=== PATIENT | female | born 1980 | race Caucasian/White ===

== ENCOUNTER 2016-12-15 21:15 | Emergency (ER) | payer OTHER ==
[~2016-12-15 21:15] MED LIST: LOSA25TA5 PO
== END 2016-12-16 01:47 | disposition left against medical advice (07) ==
LOC: E/R 21:15
DX: Z53.21 Procedure and treatment not carried out due to patient leaving prior to being seen by health care provider (principal)

== ENCOUNTER 2017-07-25 20:46 | Emergency (ER) | payer OTHER ==
[~2017-07-25] VITALS: Ht 162.6 cm; Wt 101.0 kg
[2017-07-25 20:52] VITALS: Ht 162.6 cm; Wt 101.0 kg
[2017-07-25] MEDS ORDERED: SOD CHLORIDE 0.9% 1,000 ML IV STA (23:54)
--- NOTE | 2017-07-26 00:32 | RADRPT ---
PROCEDURE: CT Brain without contrast. CLINICAL INDICATION: Dizziness. TECHNIQUE: Serial axial computed tomographic images of the brain was performed on a CT scanner fro m the skull base through the vertex without contrast. Sagittal and coronal reconstruction images wer e produced. Exam CTDlvol = 45 mGy and DLP = 720 mGy-cm. One of the following 3 dose reduction tech niques were used: Automated exposure control; adjustment of the mA and/or kV according to patient si ze; or use of iterative reconstruction technique. COMPARISON: None available FINDINGS: The ventricles and sulci are normal in size and configuration. There is no midline shift. There ar e no focal parenchymal abnormalities. There is no acute stroke. No acute intracranial hemorrhage o r abnormal extra-axial fluid collection. No fracture identified. Visualized paranasal sinuses are clear. IMPRESSION: 1. No acute intracranial abnormality. RPTAT: HMVK .Guillermo Root MD, Date Time Electronically viewed and signed by .Guillermo Root MD, on 07/26/2017 00:32 .K/
--- NOTE | 2017-07-26 01:02 | ERD ---
ER Documentation Chief Complaint Date/Time DATE: 07/26/17 TIME: 01:01 Chief Complaint dizziness, headache x 3 days HPI 37-year-old female presents in emergency department for complaints of dizziness and weakness for the last 3 days. Patient feels lightheaded and weak. She denies any chest pain or palpitations. Patient denies any head injury. Patient denies any nausea or vomiting. Patient denies any changes in balance or memory. Patient does admit of having heavy menstruation, as history of anemia, soaks full pads per day, just finished her period 1 week ago. ROS All systems reviewed and are negative except as per history of present illness. Medications Home Meds Reported Medications Losartan Potassium* (Losartan Potassium*) 25 Mg Tablet, 25 MG PO DAILY, TAB 02/10/15 Allergies Allergies: Coded Allergies: No Known Allergy (Verified , 09/13/13) PMhx/Soc History of Surgery: Yes () Anesthesia Reaction: No Hx Neurological Disorder: No Hx Respiratory Disorders: No Hx Cardiac Disorders: Yes (HTN) Hx Psychiatric Problems: No Hx Miscellaneous Medical Probl: No Hx Alcohol Use: No Hx Substance Use: No Hx Tobacco Use: Yes (1-2 sticks/day) Smoking Status: Current every day smoker FmHx Family History: No coronary disease, No diabetes, No other Physical Exam Vitals Vital Signs Date Time Temp Pulse Resp B/P Pulse Ox O2 Delivery O2 Flow Rate FiO2 07/25/17 20:52 98.3 78 20 146/77 98 Physical Exam GENERAL: The patient is well developed and appropriate for usual state of health, in no apparent distress. CHEST: Clear to auscultation bilaterally. There are no rales, wheezes or rhonchi. HEART: Regular rate and rhythm. No murmurs, clicks, rubs or gallops. No S3 or S4. ABDOMEN: Soft, nontender and nondistended. Good bowel sounds. No rebound or guarding. No gross peritonitis. No gross organomegaly or masses. No Lopez sign or McBurney point tenderness. BACK: No midline or flank tenderness. EXTREMITIES: Equal pulses bilaterally. There is no peripheral clubbing, cyanosis or edema. No focal swelling or erythema. Full range of motion. Grossly neurovascularly intact. NEURO: Alert and oriented. Cranial nerves 2-12 intact. Motor strength in all 4 extremities with 5/5 strength. Sensation grossly intact. Normal speech and gait. SKIN: There is no apparent rash or petechia. The skin is warm and dry. HEMATOLOGIC AND LYMPHATIC: There is no evidence of excessive bruising or lymphedema. No gross cervical, axillary, or inguinal lymphadenopathy. Result Diagram: 07/26/17 0053 07/26/17 0053 Results 24 hrs Laboratory Tests Test 07/26/17 00:53 07/26/17 01:37 White Blood Count 9.910^3/ul Red Blood Count 4.1010^6/ul Hemoglobin 10.1g/dl Hematocrit 32.1% Mean Corpuscular Volume 78.3fl Mean Corpuscular Hemoglobin 24.6pg Mean Corpuscular Hemoglobin Concent 31.5g/dl Red Cell Distribution Width 15.5% Platelet Count 04342^3/UL Mean Platelet Volume 10.5fl Neutrophils % 65.3% Lymphocytes % 27.2% Monocytes % 5.8% Eosinophils % 0.9% Basophils % 0.4% Nucleated Red Blood Cells % 0.0/100WBC Neutrophils # 6.510^3/ul Lymphocytes # 2.710^3/ul Monocytes # 0.610^3/ul Eosinophils # 0.110^3/ul Basophils # 0.010^3/ul Nucleated Red Blood Cells # 0.010^3/ul Sodium Level 138mmol/L Potassium Level 3.5mmol/L Chloride Level 101mmol/L Carbon Dioxide Level 29mmol/L Anion Gap 12 Blood Urea Nitrogen 16mg/dl Creatinine 0.80mg/dl Glucose Level 93mg/dl Calcium Level 9.3mg/dl Iron Level 35ug/dl Total Iron Binding Capacity 492ug/dl Percent Iron Saturation 7% SAT Total Bilirubin 0.1mg/dl Direct Bilirubin 0.00mg/dl Indirect Bilirubin 0.1mg/dl Aspartate Amino Transf (AST/SGOT) 11IU/L Alanine Aminotransferase (ALT/SGPT) 23IU/L Alkaline Phosphatase 69IU/L Total Protein 6.7g/dl Albumin 3.9g/dl Globulin 2.80g/dl Albumin/Globulin Ratio 1.39 Lipase 76U/L Urine Color YELLOW Urine Clarity CLEAR Urine pH 6.0 Urine Specific [place] 1.019 Urine Ketones NEGATIVEmg/dL Urine Nitrite NEGATIVEmg/dL Urine Bilirubin NEGATIVEmg/dL Urine Urobilinogen NEGATIVEmg/dL Urine Leukocyte Esterase NEGATIVELeu/ul Urine Microscopic RBC 3/HPF Urine Microscopic WBC 1/HPF Urine Squamous Epithelial Cells FEW/HPF Urine Hemoglobin 2+mg/dL Urine Glucose NEGATIVEmg/dL Urine Total Protein NEGATIVEmg/dl Current Medications Medications (Trade) Dose Ordered Sig/Shant Route PRN Reason Start Time Stop Time Status Last Admin Dose Admin Sodium Chloride (NS) 1,000 ml @ 1,000 mls/hr Q1H STAT IV 07/25/17 23:54 07/26/17 00:53 DC 07/26/17 00:40 Normal saline IV bolus was given here in emergency department for rehydration, patient tolerated IV fluids. EKG was done, read by me and is normal sinus rhythm at a rate of 64, normal axis , there is no ST changes or changes in the EKG that indicates any cardiac emergencies at this time. Patient's EKG was also reviewed by Dr. Cabrera. Impression: no acute findings on EKG PROCEDURE: CT Brain without contrast. CLINICAL INDICATION: Dizziness. TECHNIQUE: Serial axial computed tomographic images of the brain was performed on a CT scanner from the skull base through the vertex without contrast. Sagittal and coronal reconstruction images were produced. Exam CTDlvol = 45 mGy and DLP = 720 mGy-cm. One of the following 3 dose reduction techniques were used: Automated exposure control; adjustment of the mA and/or kV according to patient size; or use of iterative reconstruction technique. COMPARISON: None available FINDINGS: The ventricles and sulci are normal in size and configuration. There is no midline shift. There are no focal parenchymal abnormalities. There is no acute stroke. No acute intracranial hemorrhage or abnormal extra-axial fluid collection. No fracture identified. Visualized paranasal sinuses are clear. IMPRESSION: 1. No acute intracranial abnormality. RPTAT: HMVK .Guillermo Root MD, Date Time Electronically viewed and signed by .Guillermo Root MD, on 07/26/2017 00:32 .K/ CC: CORY ENRIQUEZ NP Procedures/MDM Medical Decision Making: Patient symptoms are consistent iron deficiency anemia. There is low suspicion for neurological emergencies at this time since patients neurologic exam is normal. Patient did not have any altered level consciousness, vomiting, changes in balance or memory and did not have any head injury. Patients CT scan of the head does not show any neurological emergencies at this time. EKG is normal. No other electrolytic imbalance noted. Rx:continue iron, miralax, colace, ffup with Medical Aide for heavy periods, return to er for any worsening s/s Dispostion: Home. Stable Departure Diagnosis: Primary Impression: Dizziness Additional Impressions: Iron deficiency anemia Iron deficiency anemia type: chronic blood loss Qualified Code: D50.0 - Iron deficiency anemia due to chronic blood loss Menorrhagia Menorrahagia type: with regular cycle Qualified Code: N92.0 - Menorrhagia with regular cycle Condition: Stable Patient Instructions: Anemia, Iron Deficiency (Adult), Dizziness, Unk Cause, Menorrhagia Additional Instructions: Rx:continue iron, miralax, colace, ffup with Medical Aide for heavy periods, return to er for any worsening s/s CORY ENRIQUEZ NP Jul 26, 2017 01:02
[2017-07-26 01:36] LABS: IRON 35 ug/dl (35-150)
[2017-07-26 01:38] LABS: ALBUMIN 3.9 g/dl (3.3-4.9); ALBUMIN/GLOBULIN RATIO 1.39; BILIRUBIN,INDIRECT 0.1 mg/dl (0-1.1); BILIRUBIN,TOTAL 0.1 mg/dl (0.2-1.3); CALCIUM 9.3 mg/dl (8.4-10.2); CREATININE 0.8 mg/dl (0.44-1.00); POTASSIUM 3.5 mmol/L (3.5-5.1); TOTAL PROTEIN 6.7 g/dl (6.1-8.1)
[2017-07-26 01:45] LABS: TOTAL IRON BINDING CAPACITY 492 ug/dl (241-421)
[2017-07-26 01:48] LABS: BASOPHILS % 0.4 % (0.0-2.0); EOSINOPHILS # 0.1 10^3/ul (0.0-0.5); EOSINOPHILS % 0.9 % (0.0-7.0); HEMATOCRIT 32.1 % (37.0-47.0); HEMOGLOBIN 10.1 g/dl (12.0-16.0); LYMPHOCYTES # 2.7 10^3/ul (0.8-2.9); LYMPHOCYTES % 27.2 % (15.0-51.0); MEAN CORPUSCULAR HEMOGLOBIN 24.6 pg (29.0-33.0); MEAN CORPUSCULAR HGB CONC 31.5 g/dl (32.0-37.0); MEAN CORPUSCULAR VOLUME 78.3 fl (82.0-101.0); MEAN PLATELET VOLUME 10.5 fl (7.4-10.4); MONOCYTE # 0.6 10^3/ul (0.3-0.9); MONOCYTES % 5.8 % (0.0-11.0); NEUTROPHIL # 6.5 10^3/ul (1.6-7.5); NEUTROPHILS % 65.3 % (39.0-77.0); PLATELET COUNT 351 10^3/UL (140-415); RED CELL DISTRIBUTION WIDTH 15.5 % (11.5-14.5); WHITE BLOOD COUNT 9.9 10^3/ul (4.8-10.8)
[2017-07-26 01:58] LABS: ADD UMIC YES; UR ASCORBIC ACID NEGATIVE (NEGATIVE); UR BILIRUBIN (Dip) NEGATIVE (NEGATIVE); UR BLOOD (Dip) 2+ mg/dL (NEGATIVE); UR CLARITY CLEAR (CLEAR); UR COLOR YELLOW (YELLOW); UR GLUCOSE (Dip) NEGATIVE (NEGATIVE); UR KETONES (Dip) NEGATIVE (NEGATIVE); UR LEUKOCYTE ESTERASE (Dip) NEGATIVE Leu/ul (NEGATIVE); UR NITRITE (Dip) NEGATIVE (NEGATIVE); UR RBC 3 /HPF (0-5); UR SPECIFIC GRAVITY (Dip) 1.019 (1.003-1.030); UR SQUAMOUS EPITHELIAL CELL FEW /HPF (FEW); UR TOTAL PROTEIN (Dip) NEGATIVE (NEGATIVE); UR UROBILINOGEN (Dip) NEGATIVE (NEGATIVE)
[2017-07-26] MEDS ORDERED: POLY17PO6 PO (02:06)
[2017-07-26] MEDS ORDERED: DOCU-144 PO (02:06)
[2017-07-26 02:30] VITALS: BP 126/81; PULSE 71; RESP 18
== END 2017-07-26 02:34 | disposition home or self-care (01) ==
LOC: FTE 20:46
DX: R42 Dizziness and giddiness (principal); D50.0 Iron deficiency anemia secondary to blood loss (chronic); N92.0 Excessive and frequent menstruation with regular cycle; I10 Essential (primary) hypertension; F17.210 Nicotine dependence, cigarettes, uncomplicated
CPT/HCPCS: 36415; 70450; 80053; 81001; 83540; 83690; 85025; 93005; J7030; Z7502